=== PATIENT | female | born 1950 | race Caucasian/White ===

== ENCOUNTER 2016-10-23 16:19 | Observation (INO) | payer OTHER ==
[~2016-10-23] VITALS: Ht 170.2 cm; Wt 107.5 kg
[~2016-10-23 16:19] MED LIST: ADVIL,NUPRIN,M200 MG PO; ASPIR-LOW81 MG PO; B6; BRILINTA90 MG PO; CALCIUM 500 MG1 EACH PO; CALCIUM 600 +1 EA16 PO; CALCIUM PO; CENTRUM SILVER1 EAC4 PO; CHONDROITIN PO; COZAAR50 MG PO; DIOVAN320 MG PO; FIORICET,ESG1 TABLET PO; FISH OIL 1,0001 EA10 PO; FISH OIL 1,2001 EAC4 PO; FISH OIL SOFTG1 EACH PO; FLEXERIL10 MG PO; FOSAMAX70 MG PO; FUROSEMIDE40 MG PO; GLUCOSAMINE; GLUCOSAMINE 1,1 EAC1 PO; KLOR-CON M2020 MEQ PO; LIVALO2 MG PO; LO-DOSE ASPIRIN81 M2 PO; LOVASTATIN40 MG PO; METOPROLOL TAR100 MG PO; NIACIN500 MG PO; NITROGLYCERIN SL; NITROSTAT0.4 MG SL; OXYCODONE5 MG PO; PERCOCET 7.51 TABLET PO; PLAVIX75 MG PO; PROTONIX40 MG PO; TOPROL XL100 MG PO; TOPROL XL200 MG PO; TYLENOL EXTRA500 MG PO; VITAMIN D31000 UNIT PO; WELCHOL625 MG PO; ZETIA10 MG PO
[2016-10-23 17:38] LABS: HEMATOCRIT 37.3 % (36.0-46.0); MCH 28.9 PG (29.0-34.0); MCHC 32.7 G/DL (30.0-36.0); MCV 88.4 FL (83-99); MEAN PLAT.VOLUME 8.6 uM^3 (9.5-12.4); PLATELET COUNT 248 K/uL (156-360); RBC DIS.WIDTH-CV 13.5 % (11.8-14.6); RBC DIS.WIDTH-SD 43.7 % (39-53); RED BLOOD COUNT 4.22 M/uL (3.80-5.20)
[2016-10-23 17:48] LABS: CHLORIDE 107 mEq/L (99-109); POTASSIUM 4.6 mEq/L (3.7-5.4); SODIUM 143 mEq/L (136-147)
[2016-10-23 17:50] LABS: GLUCOSE 126 mg/dL (70-99)
[2016-10-23 17:51] LABS: ANION GAP 11 MEQ/L (2-14)
[2016-10-23 17:54] LABS: GFR ESTIMATE (CALCULATED) 59 mL/min/
[2016-10-23 17:55] LABS: UREA NITROGEN (BUN) 12 mg/dL (9-23)
[2016-10-23 18:00] LABS: TROP-I INTERPRETATION NEGATIVE; TROPONIN-I < 0.01 ng/mL (0.0-0.30)
[2016-10-23 20:00] LABS: TROP-I INTERPRETATION NEGATIVE; TROPONIN-I < 0.01 ng/mL (0.0-0.30)
[2016-10-23] MEDS ORDERED: ALDACTONE25 MG PO (20:41)
[2016-10-23] MEDS ORDERED: ZOFRAN4 MG PO (20:43)
[2016-10-23] MEDS ORDERED: ZANTAC150 MG PO (20:44)
[2016-10-23] MEDS ORDERED: METANX CAPSULE1 EACH PO (20:45)
[2016-10-23 23:09] VITALS: BP 131/66
[2016-10-24 02:52] LABS: TROP-I INTERPRETATION NEGATIVE; TROPONIN-I < 0.01 ng/mL (0.0-0.30)
[2016-10-24 04:12] VITALS: BP 118/59
[2016-10-24 07:38] VITALS: BP 115/53
[2016-10-24 09:19] LABS: HDL CHOLESTEROL 48 MG/DL (Desirable>=50); LDL CHOLESTEROL 93 mg/dL (Desirable<100); NON-HDL CHOLESTEROL 132 mg/dL (Desirable<160); TOTAL CHOLESTEROL 180 mg/dL (Desirable<200); TRIGLYCERIDES 194 MG/DL (Normal: <150)
[2016-10-24 09:24] LABS: TROP-I INTERPRETATION NEGATIVE; TROPONIN-I < 0.01 ng/mL (0.0-0.30)
[2016-10-24 11:32] VITALS: BP 113/79
== END 2016-10-24 13:40 | disposition home or self-care (01) ==
LOC: EME 16:19 → EDOF 20:52 → ENRESERV 20:55 → 5WEST 22:41
PROVIDERS: Emergency Medicine; Physician Assistant Medical
DX: R07.9 Chest pain, unspecified (principal); K21.0 Gastro-esophageal reflux disease with esophagitis; I95.9 Hypotension, unspecified; E83.52 Hypercalcemia; I10 Essential (primary) hypertension; E11.9 Type 2 diabetes mellitus without complications; I25.10 Atherosclerotic heart disease of native coronary artery without angina pectoris; Z95.1 Presence of aortocoronary bypass graft; Z95.5 Presence of coronary angioplasty implant and graft; E78.5 Hyperlipidemia, unspecified; I25.2 Old myocardial infarction; R42 Dizziness and giddiness; R11.0 Nausea; E66.8 Other obesity; Z68.37 Body mass index [BMI] 37.0-37.9, adult; Z88.1 Allergy status to other antibiotic agents; Z88.8 Allergy status to other drugs, medicaments and biological substances; Z91.09 Other allergy status, other than to drugs and biological substances; Z85.828 Personal history of other malignant neoplasm of skin; Z81.4 Family history of other substance abuse and dependence; Z82.8 Family history of other disabilities and chronic diseases leading to disablement, not elsewhere classified; Z80.8 Family history of malignant neoplasm of other organs or systems; Z82.0 Family history of epilepsy and other diseases of the nervous system
CPT/HCPCS: 71020; 71275; 74174; 80048; 80061; 84484; 85027; 93005; 99281; 99285; G0378; J1650; J7030

== ENCOUNTER 2017-09-27 13:02 | Emergency (ER) | payer OTHER ==
[~2017-09-27] VITALS: Ht 170.2 cm; Wt 104.5 kg
[~2017-09-27 13:02] MED LIST changes: +ALDACTONE25 MG PO; +KLOR-CON20 MEQ PO; +LIBRAX, CLI1 CAPSULE PO; +LIDOCARE1 EACH TP; +METANX CAPSULE1 EACH PO; +ZANTAC150 MG PO; +ZOFRAN4 MG PO
[2017-09-27] MEDS ORDERED: MIRALAX255 GM PO (17:46)
[2017-09-27] MEDS ORDERED: PERCOCET 5/31 TABLET PO (17:46)
[2017-09-27] MEDS ORDERED: STOOL SOFTENER100 MG PO (17:46)
[2017-09-27] MEDS ORDERED: LIDODERM 5% P1 PATCH TD (17:46)
[2017-09-27 19:24] VITALS: BP 142/95
== END 2017-09-27 19:20 | disposition home or self-care (01) ==
LOC: EME 13:02
DX: S32.010A Wedge compression fracture of first lumbar vertebra, initial encounter for closed fracture (principal); K59.00 Constipation, unspecified; W07.XXXA Fall from chair, initial encounter; E11.9 Type 2 diabetes mellitus without complications; I10 Essential (primary) hypertension; M41.9 Scoliosis, unspecified; I25.2 Old myocardial infarction; K21.9 Gastro-esophageal reflux disease without esophagitis; Z95.1 Presence of aortocoronary bypass graft; Z95.5 Presence of coronary angioplasty implant and graft; Z79.82 Long term (current) use of aspirin; Z91.040 Latex allergy status; Z88.8 Allergy status to other drugs, medicaments and biological substances; Z87.891 Personal history of nicotine dependence
CPT/HCPCS: 72131; 74018; 99281; 99285; J3010

== ENCOUNTER 2017-10-02 05:27 | Emergency (ER) | payer OTHER ==
[~2017-10-02] VITALS: Ht 170.2 cm; Wt 105.3 kg
[~2017-10-02 05:27] MED LIST changes: +LIDODERM 5% P1 PATCH TD; +MIRALAX255 GM PO; +PERCOCET 5/31 TABLET PO; +STOOL SOFTENER100 MG PO
[2017-10-02 06:03] LABS: HEMATOCRIT 37.9 % (36.0-46.0); HEMOGLOBIN 12.7 G/DL (11.9-15.5); MCH 28.5 PG (29.0-34.0); MCHC 33.5 G/DL (30.0-36.0); PLATELET COUNT 228 K/uL (156-360); RBC DIS.WIDTH-CV 14.5 % (11.8-14.6); RBC DIS.WIDTH-SD 44.7 % (39-53); RED BLOOD COUNT 4.46 M/uL (3.80-5.20)
[2017-10-02 06:44] LABS: ALBUMIN 3.7 G/DL (3.2-4.8); ALKALINE PHOSPHATASE 89 IU/L (3-129); ALT (GPT) 16 IU/L (3-49); AST (GOT) 17 IU/L (2-34); CHLORIDE 100 MEQ/L (99-109); CREATININE 0.9 MG/DL (0.6-1.3); GFR ESTIMATE (CALCULATED) > 59 mL/min/; GLUCOSE 133 mg/dL (70-99); POTASSIUM 3.8 MEQ/L (3.7-5.4); SODIUM 134 MEQ/L (136-147); TOTAL BILIRUBIN 0.5 MG/DL (0.0-1.0); TOTAL PROTEIN 6.3 G/DL (6.4-8.3); UREA NITROGEN (BUN) 12 mg/dL (9-23)
[2017-10-02 08:54] LABS: APPEARANCE SL.HAZY ((CLEAR)); BILIRUBIN NEGATIVE; BLOOD NEGATIVE; COLOR YELLOW ((YELLOW)); GLUCOSE (STRIP) NEGATIVE; KETONES NEGATIVE; LEUKOCYTES MODERATE; NITRITE NEGATIVE; PROTEIN (STRIP) 30; SPECIFIC GRAVITY 1.027 (1.000-1.030); UROBILINOGEN 0.2 MG/DL (0.2-1.0)
[2017-10-02 09:02] LABS: BACTERIA RARE /HPF; EPITHELIAL CELLS 1+ /HPF; MUCUS TRACE /LPF; RED BLOOD CELLS 0-5 /HPF (0-5); UCUL ADDED? NO; WHITE BLOOD CELLS 0-5 /HPF (0-5)
[2017-10-02] MEDS ORDERED: CITRATE OF MAG296 ML PO (15:05)
[2017-10-02 16:07] VITALS: BP 116/87
== END 2017-10-02 16:07 | disposition home or self-care (01) ==
LOC: EME → EDBD 05:27 → EME 05:27
DX: K59.03 Drug induced constipation (principal); T40.2X5A Adverse effect of other opioids, initial encounter; R10.9 Unspecified abdominal pain; M48.56XA Collapsed vertebra, not elsewhere classified, lumbar region, initial encounter for fracture; E11.9 Type 2 diabetes mellitus without complications; I10 Essential (primary) hypertension; I25.2 Old myocardial infarction; K21.9 Gastro-esophageal reflux disease without esophagitis; Z95.5 Presence of coronary angioplasty implant and graft; Z79.02 Long term (current) use of antithrombotics/antiplatelets; Z95.1 Presence of aortocoronary bypass graft; Z90.49 Acquired absence of other specified parts of digestive tract; Z79.82 Long term (current) use of aspirin; Z87.891 Personal history of nicotine dependence; Z91.040 Latex allergy status; Z88.8 Allergy status to other drugs, medicaments and biological substances
CPT/HCPCS: 74021; 80053; 81003; 85027; J2765; J3010; J7030